=== PATIENT | female | born 1970 | race Caucasian/White ===

== ENCOUNTER 2023-05-16 21:33 | Emergency (ER) | payer OTHER, MEDICAID ==
[~2023-05-16] VITALS: Ht 157.5 cm; Wt 89.8 kg
[2023-05-16 21:50] VITALS: BP 136/90; PULSE 98; RESP 19; TEMP 98.1; O2SAT 97
[2023-05-17] MEDS: HYDROcodone/APAP 5/325 MG 1 TAB TAB PO ONE ×2 (00:16→00:26)
[2023-05-17 02:51] LABS: BASOPHILS # (AUTO) 0.1 K/uL (0.00-0.22); BASOPHILS % (AUTO) 0.8 % (0.0-2.0); EOSINOPHILS # (AUTO) 0.1 K/uL (0-0.4); EOSINOPHILS % (AUTO) 1.3 % (0.0-4.0); HEMATOCRIT 39.2 % (36-48); HEMOGLOBIN 12.9 g/dL (12.0-16.0); LYMPHOCYTES # (AUTO) 0.9 K/uL (2.5-16.5); LYMPHOCYTES % (AUTO) 13.5 % (20.5-51.1); MEAN CORPUSCULAR HEMOGLOBIN 25 pg (27-31); MEAN CORPUSCULAR HGB CONC 33 g/dL (33-37); MEAN CORPUSCULAR VOLUME 76.3 fL (80-94); MONOCYTES # (AUTO) 0.8 K/uL (0.8-1.0); MONOCYTES % (AUTO) 11.4 % (1.7-9.3); NEUTROPHILS # (AUTO) 5.1 K/uL (1.8-7.7); PLATELET COUNT (AUTO) 235 K/uL (140-450); RED BLOOD CELL COUNT(AUTO) 5.14 MIL/uL (4.20-5.40); RED CELL DISTRIBUTION WIDTH 15.7 % (11.6-13.7); WHITE BLOOD COUNT (AUTO) 6.9 K/uL (4.8-10.8)
[2023-05-17 03:00] LABS: ANION GAP 11.7 (8-16); CALCIUM 7.9 mg/dL (8.5-10.1); CREATININE 0.7 mg/dL (0.6-1.3); POTASSIUM 3.7 mmol/L (3.5-5.1)
[2023-05-17 03:03] LABS: PARTIAL THROMBOPLASTIN TIME 46.1 secs (22-35.6)
[2023-05-17 03:05] LABS: INR 4.34 (0.8-1.2); PROTHROMBIN TIME 42.5 secs (10.8-13.4)
[2023-05-17] MEDS ORDERED: MORPHINE SULFATE 2 MG/ML SYR IM STA (03:12)
[2023-05-17] MEDS ORDERED: ACET-8905 PO ×2 (06:41→06:42)
[2023-05-17 06:45] VITALS: BP 150/88; PULSE 98; RESP 19; TEMP 98.1; O2SAT 97
[2023-05-17] MEDS ORDERED: CYCL-711 PO (06:55)
== END 2023-05-17 06:45 | disposition home or self-care (01) ==
LOC: MED 21:33
DX: S83.8X2A Sprain of other specified parts of left knee, initial encounter (principal); S09.90XA Unspecified injury of head, initial encounter; J34.89 Other specified disorders of nose and nasal sinuses; W18.30XA Fall on same level, unspecified, initial encounter; Y93.89 Activity, other specified; Y92.89 Other specified places as the place of occurrence of the external cause; Y99.8 Other external cause status
CPT/HCPCS: 29505; 36415; 70160; 70450; 70486; 73562; 73660; 80048; 85025; 85610; 85730; 96372; 99285; J2270

== ENCOUNTER 2023-07-16 13:21 | Emergency (ER) | payer OTHER, MEDICAID ==
[~2023-07-16] VITALS: Ht 157.5 cm; Wt 89.4 kg
[~2023-07-16 13:21] MED LIST: ACET-8905 PO; CYCL-711 PO
[2023-07-16 13:44] VITALS: BP 165/93; PULSE 72; RESP 20; TEMP 97.8; O2SAT 100
[2023-07-16] MEDS ORDERED: NACL 0.9% 1,000 ML IV ONE (14:20)
[2023-07-16] MEDS ORDERED: LIDOCAINE 5% 1 EA PATCH TP ONE (14:20)
[2023-07-16] MEDS ORDERED: MORPHINE SULFATE 2 MG/ML SYR IVP ONE (14:20)
[2023-07-16] MEDS ORDERED: diphenhydrAMINE 50 MG/ML VIAL IVP ONE (14:20)
[2023-07-16] MEDS ORDERED: DEXAMETHASONE 10 MG/ML VIAL IVP ONE (14:20)
[2023-07-16] MEDS ORDERED: METOCLOPRAMIDE 10 MG/2 ML INJ VIAL IVP ONE (14:20)
[2023-07-16 14:49] LABS: BASOPHILS # (AUTO) 0.1 K/uL (0.00-0.22); BASOPHILS % (AUTO) 0.8 % (0.0-2.0); EOSINOPHILS % (AUTO) 0.2 % (0.0-4.0); HEMATOCRIT 46.5 % (36-48); HEMOGLOBIN 15.6 g/dL (12.0-16.0); LYMPHOCYTES # (AUTO) 0.7 K/uL (2.5-16.5); LYMPHOCYTES % (AUTO) 8.5 % (20.5-51.1); MEAN CORPUSCULAR HEMOGLOBIN 26 pg (27-31); MEAN CORPUSCULAR HGB CONC 34 g/dL (33-37); MEAN CORPUSCULAR VOLUME 76.9 fL (80-94); MONOCYTES # (AUTO) 0.5 K/uL (0.8-1.0); MONOCYTES % (AUTO) 5.6 % (1.7-9.3); NEUTROPHILS % (AUTO) 84.9 % (42.2-75.2); PLATELET COUNT (AUTO) 296 K/uL (140-450); RED BLOOD CELL COUNT(AUTO) 6.05 MIL/uL (4.20-5.40); RED CELL DISTRIBUTION WIDTH 16.1 % (11.6-13.7); WHITE BLOOD COUNT (AUTO) 8.3 K/uL (4.8-10.8)
[2023-07-16 15:05] LABS: ANION GAP 11.7 (8-16); CALCIUM 9.5 mg/dL (8.5-10.1); CARBON DIOXIDE 31.9 mmol/L (21-32); CREATININE 0.8 mg/dL (0.6-1.3); POTASSIUM 3.6 mmol/L (3.5-5.1)
[2023-07-16 15:16] LABS: ALBUMIN 4.2 g/dL (3.4-5.0); BILIRUBIN,DIRECT 0.2 mg/dL (0.0-0.3); TOTAL BILIRUBIN 1.2 mg/dL (0.0-1.0)
[2023-07-16] MEDS ORDERED: CYCL-711 PO (16:10)
[2023-07-16] MEDS ORDERED: ACET-8001 PO (16:10)
[2023-07-16] MEDS ORDERED: LID5T TP (16:10)
[2023-07-16] MEDS ORDERED: ONDA-188 SL (17:04)
[2023-07-16 17:10] VITALS: BP 178/92; PULSE 71; RESP 20; TEMP 98.3; O2SAT 97
== END 2023-07-16 17:23 | disposition home or self-care (01) ==
LOC: MED 13:21
DX: S16.1XXA Strain of muscle, fascia and tendon at neck level, initial encounter (principal); I10 Essential (primary) hypertension; R51.9 Headache, unspecified; Z86.73 Personal history of transient ischemic attack (TIA), and cerebral infarction without residual deficits; Z79.899 Other long term (current) drug therapy; X58.XXXA Exposure to other specified factors, initial encounter; Y92.89 Other specified places as the place of occurrence of the external cause; Y93.89 Activity, other specified; Y99.8 Other external cause status
CPT/HCPCS: 36415; 80048; 80076; 83690; 85025; 96361; 96374; 96375; 99284; J1100; J1200; J2270; J2765; J7030